=== PATIENT | female | born 1995 | race Caucasian/White ===

== ENCOUNTER → 2016-07-17 | Outpatient (CLI) | payer OTHER ==
[~2016-07-17] MED LIST: ALBU17IN INH; BACT800T5 PO; CIPR500T89 PO; CLAR1TAB2 PO; FLAG500T PO; LEVO500T32 PO; MOTR200T44 PO; MUCI600T34 PO; PERCOCET PO; STUATAB PO; TYLE325T5 PO
[2016-07-17 12:59] LABS: MEAN CORPUSCULAR HEMOGLOBIN 28.3 pg (27.0-33.0); WHITE BLOOD COUNT 5.9 K/mm3 (4.0-10.0)
[2016-07-17 13:06] LABS: ALBUMIN 3.9 GM/DL (3.2-5.2); ALKALINE PHOSPHATASE 117 U/L (45-117); ALT/SGPT 66 U/L (12-78); AMYLASE 27 U/L (25-115); ANION GAP 8 MEQ/L (8-16); AST/SGOT 37 U/L (15-37); BILIRUBIN,DIRECT 0.1 MG/DL (0.0-0.2); BILIRUBIN,TOTAL 0.5 MG/DL (0.2-1.0); BLOOD UREA NITROGEN 14 MG/DL (7-18); CALCIUM LEVEL 9.2 MG/DL (8.5-10.1); CARBON DIOXIDE LEVEL 27 MEQ/L (21-32); CHLORIDE LEVEL 108 MEQ/L (98-107); CREATININE FOR GFR 0.61 MG/DL (0.55-1.02); GLOMERULAR FILTRATION RATE > 60.0 (>60); GLUCOSE, FASTING 79 MG/DL (70-105); POTASSIUM SERUM 4.8 MEQ/L (3.5-5.1); SODIUM LEVEL 143 MEQ/L (136-145); TOTAL PROTEIN 7.8 GM/DL (6.4-8.2)
== END ==
LOC: M LAB 11:37
PROVIDERS: ATTEND Physician Assistant Medical
DX: K85.80 Other acute pancreatitis without necrosis or infection (principal)

== ENCOUNTER 2016-10-28 23:52 | Emergency (ER) | payer OTHER ==
[~2016-10-28] VITALS: Ht 165.1 cm; Wt 140.6 kg
[2016-10-29] MEDS ORDERED: THERTAB3 PO (00:16)
[2016-10-29] MEDS ORDERED: EXCETAB81 PO (00:16)
[2016-10-29] MEDS ORDERED: methylPREDNISolone INJ 125 MG/2 ML VIAL (J2930) IM ONE (04:30)
[2016-10-29] MEDS ORDERED: IPRATROPIUM 0.5MG/ALBUTEROL 2.5MG INH SOL UD 3ML (DUONEB)(J7620) NEB ONE (04:30)
[2016-10-29] MEDS ORDERED: ZITHTAB PO (04:37)
[2016-10-29] MEDS ORDERED: PRED20TA PO (04:37)
[2016-10-29] MEDS ORDERED: ACETAMINOPHEN 325 MG TAB PO ONE (04:45)
[2016-10-29 04:51] VITALS: BP 141/68
--- NOTE | 2016-10-29 07:44 | REP ---
Clinical: Cough . Comparison: 03/18/2013 . Technique: PA and lateral. Findings: The mediastinum and cardiac silhouette are normal. The lung meyer are clear and without acute consolidation, effusion, or pneumothorax. The skeletal structures are intact and normal. Impression: 1. No acute cardiopulmonary process. Signed by Alpesh Hobson MD 10/29/2016 07:36 A
== END 2016-10-29 04:57 | disposition home or self-care (01) ==
LOC: M ED 10-29 01:10
DX: J20.9 Acute bronchitis, unspecified (principal); J45.909 Unspecified asthma, uncomplicated; F17.200 Nicotine dependence, unspecified, uncomplicated; Z88.1 Allergy status to other antibiotic agents

== ENCOUNTER → 2016-11-07 | Outpatient (REF) | payer OTHER ==
[~2016-11-07] MED LIST changes: +EXCETAB81 PO; +PRED20TA PO; +THERTAB3 PO; +ZITHTAB PO
== END ==
LOC: M SFHCPLAZ 12:07
PROVIDERS: ATTEND Family Medicine
DX: R10.84 Generalized abdominal pain (principal); Z87.19 Personal history of other diseases of the digestive system

== ENCOUNTER → 2016-11-08 | Outpatient (CLI) | payer OTHER ==
[2016-11-08 18:37] LABS: ALBUMIN 3.7 GM/DL (3.2-5.2); ALKALINE PHOSPHATASE 99 U/L (45-117); ALT/SGPT 40 U/L (12-78); AMYLASE 27 U/L (25-115); AST/SGOT 16 U/L (15-37); BILIRUBIN,DIRECT < 0.1 MG/DL (0.0-0.2); BILIRUBIN,TOTAL 0.3 MG/DL (0.2-1.0); TOTAL PROTEIN 7.4 GM/DL (6.4-8.2)
== END ==
LOC: M LAB 17:37
PROVIDERS: ATTEND Family Medicine
DX: Z87.19 Personal history of other diseases of the digestive system (principal); R10.84 Generalized abdominal pain

== ENCOUNTER → 2016-11-12 | Outpatient (CLI) | payer OTHER ==
[2016-11-12 14:08] LABS: MEAN CORPUSCULAR HEMOGLOBIN 28.6 pg (27.0-33.0); MEAN CORPUSCULAR HGB CONC 33.6 g/dl (32.0-36.5); MEAN CORPUSCULAR VOLUME 84.9 fl (80.0-96.0); RED CELL DISTRIBUTION WIDTH 13.8 % (11.5-14.5); WHITE BLOOD COUNT 6.7 K/mm3 (4.0-10.0)
== END ==
LOC: M LAB 12:24
PROVIDERS: ATTEND Family Medicine
DX: R10.84 Generalized abdominal pain (principal)

== ENCOUNTER → 2016-11-26 | Outpatient (CLI) | payer OTHER ==
[2016-11-26 18:02] LABS: ALBUMIN 3.7 GM/DL (3.2-5.2); ALBUMIN/GLOBULIN RATIO 1.19 (1.00-1.93); ALKALINE PHOSPHATASE 84 U/L (45-117); ALT/SGPT 51 U/L (12-78); AMYLASE 21 U/L (25-115); ANION GAP 7 MEQ/L (8-16); AST/SGOT 23 U/L (15-37); BILIRUBIN,TOTAL 0.5 MG/DL (0.2-1.0); BLOOD UREA NITROGEN 10 MG/DL (7-18); CALCIUM LEVEL 8.8 MG/DL (8.5-10.1); CARBON DIOXIDE LEVEL 26 MEQ/L (21-32); CHLORIDE LEVEL 112 MEQ/L (98-107); GLOMERULAR FILTRATION RATE > 60.0 (>60); GLUCOSE, FASTING 116 MG/DL (70-105); POTASSIUM SERUM 3.7 MEQ/L (3.5-5.1); SODIUM LEVEL 145 MEQ/L (136-145); TOTAL PROTEIN 6.8 GM/DL (6.4-8.2)
[2016-11-26 18:29] LABS: BASO % 0.9 % (0.0-1.0); EOS # 0.2 K/mm3 (0.0-0.50); EOS % 4.3 % (0.0-3.0); LARGE UNSTAINED CELL # 0.1 K/mm3 (0.0-0.4); LARGE UNSTAINED CELL % 1.5 % (0.0-4.0); LYMPH # 2.2 K/mm3 (1.5-6.5); LYMPH % 42.7 % (24.0-44.0); MEAN CORPUSCULAR HEMOGLOBIN 29.3 pg (27.0-33.0); MEAN CORPUSCULAR HGB CONC 34.6 g/dl (32.0-36.5); MEAN CORPUSCULAR VOLUME 84.8 fl (80.0-96.0); MONO # 0.2 K/mm3 (0.0-0.8); NEUTROPHILS # 2.4 K/mm3 (1.8-7.7); NEUTROPHILS % 46.6 % (36.0-66.0); PLATELET COUNT, AUTOMATED 186 k/mm3 (150-450); RED CELL DISTRIBUTION WIDTH 14.1 % (11.5-14.5); WHITE BLOOD COUNT 5.2 K/mm3 (4.0-10.0)
== END ==
LOC: M SMT 14:24
PROVIDERS: ATTEND Internal Medicine Gastroenterology
DX: R10.84 Generalized abdominal pain (principal); K85.80 Other acute pancreatitis without necrosis or infection

== ENCOUNTER 2017-04-16 12:33 | Emergency (ER) | payer MEDICAID, OTHER, SELFPAY ==
[~2017-04-16] VITALS: Ht 165.1 cm; Wt 144.1 kg
[2017-04-16 12:33] VITALS: BP 147/81
[~2017-04-16 12:33] MED LIST changes: +CIPR-249 PO; -CIPR500T89 PO; +LEVO500T3 PO; -LEVO500T32 PO; -MUCI600T34 PO; +MUCI600T37 PO
[2017-04-16] MEDS ORDERED: TYLE500T78 PO (12:39)
[2017-04-16] MEDS ORDERED: NORCOTAB PO (13:20)
[2017-04-16] MEDS ORDERED: CLEO300C2 PO (13:20)
[2017-04-16] MEDS ORDERED: IBUP-1022 PO (13:20)
== END 2017-04-16 13:43 | disposition home or self-care (01) ==
LOC: M ED 12:33
DX: K02.9 Dental caries, unspecified (principal); K04.7 Periapical abscess without sinus; Z72.0 Tobacco use

== ENCOUNTER 2017-06-30 15:07 | Emergency (ER) | payer OTHER, MEDICAID ==
[2017-06-30 15:30] LABS: KETONE, URINE AUTO RFX NEGATIVE (NEGATIVE); NITRITE, URINE AUTO RFX NEGATIVE (NEGATIVE); RBC, URINE AUTO RFX 3 /HPF (0-3); SPECIFIC GRAVITY UR AUTO RFX 1.026 (1.002-1.035); SQUAM EPITHELIAL CELL UR AURFX 3 /HPF (0-6); WBC, URINE AUTO RFX 1 /HPF (0-3)
[2017-06-30 15:33] LABS: LEUKOCYTE ESTERASE UR AUTO RFX 1+ (NEGATIVE)
[2017-06-30] MEDS: CLINDAMYCIN 150 MG CAP PO (16:30)
[2017-06-30] MEDS: IBUPROFEN 800 MG TAB PO (16:30)
== END 2017-06-30 16:38 | disposition home or self-care (01) ==
LOC: M ED 15:07
DX: K04.7 Periapical abscess without sinus (principal); M54.5 Low back pain; J45.909 Unspecified asthma, uncomplicated; F41.9 Anxiety disorder, unspecified; F17.210 Nicotine dependence, cigarettes, uncomplicated; Z87.448 Personal history of other diseases of urinary system; Z88.0 Allergy status to penicillin
CPT/HCPCS: 81001

== ENCOUNTER 2017-09-07 20:44 | Emergency (ER) | payer OTHER | END 2017-09-07 23:19 | disposition home or self-care (01) | LOC: M ED 20:44 | DX: S00.83XA Contusion of other part of head, initial encounter (principal); W22.8XXA Striking against or struck by other objects, initial encounter; Y92.59 Other trade areas as the place of occurrence of the external cause; Y99.0 Civilian activity done for income or pay; Z87.820 Personal history of traumatic brain injury | CPT/HCPCS: 99282 ==

== ENCOUNTER 2019-06-28 22:39 | Emergency (ER) | payer OTHER ==
[~2019-06-28] VITALS: Ht 165.1 cm; Wt 160.0 kg
[~2019-06-28 22:39] MED LIST changes: +CLEO300C2 PO; +HYDR-3715 PO; +IBUP-1022 PO; +IBUP80TA PO; +TYLE500T78 PO
[2019-06-28 22:40] VITALS: BP 177/73
[2019-06-28 23:29] LABS: INFLUENZA A AMPLIFICATION POSITIVE (NEGATIVE); INFLUENZA B AMPLIFICATION NEGATIVE (NEGATIVE)
[2019-06-28] MEDS ORDERED: KETOROLAC 60 MG/2 ML VIAL (J1885) IM ONE (23:45)
[2019-06-28] MEDS ORDERED: OSELTAMIVIR PHOSPHATE 75 MG CAP (TAMIFLU) PO ONE (23:45)
[2019-06-29] MEDS ORDERED: OSEL75CA PO (00:14)
--- NOTE | 2019-06-29 01:43 | REP ---
Clinical: Cough and flu-type symptoms . Comparison: 10/29/2016 . Technique: PA and lateral. Findings: The mediastinum and cardiac silhouette are normal. The lung meyer are clear and without acute consolidation, effusion, or pneumothorax. The skeletal structures are intact and normal. Impression: 1. No acute cardiopulmonary process. Electronically Signed by Alpesh Hobson MD 06/29/2019 01:34 A
== END 2019-06-29 00:22 | disposition home or self-care (01) ==
LOC: M ED 22:39
DX: J09.X2 Influenza due to identified novel influenza A virus with other respiratory manifestations (principal); J45.909 Unspecified asthma, uncomplicated; F41.9 Anxiety disorder, unspecified; F17.200 Nicotine dependence, unspecified, uncomplicated; Z88.0 Allergy status to penicillin
CPT/HCPCS: 71046; 87502; 96372; 99282; J1885

== ENCOUNTER 2019-07-27 18:04 | Emergency (ER) | payer OTHER ==
[~2019-07-27] VITALS: Ht 165.1 cm; Wt 152.4 kg
[~2019-07-27 18:04] MED LIST changes: +OSEL75CA PO
[2019-07-27 19:14] VITALS: BP 128/76
[2019-07-27] MEDS ORDERED: OSEL75CA PO (19:15)
== END 2019-07-27 19:26 | disposition home or self-care (01) ==
LOC: M ED 18:04
DX: J09.X9 Influenza due to identified novel influenza A virus with other manifestations (principal); F17.200 Nicotine dependence, unspecified, uncomplicated; Z20.828 Contact with and (suspected) exposure to other viral communicable diseases; Z88.1 Allergy status to other antibiotic agents

== ENCOUNTER 2019-12-19 00:34 | Emergency (ER) | payer OTHER ==
[~2019-12-19] VITALS: Ht 165.1 cm; Wt 151.8 kg
[2019-12-19] MEDS ORDERED: ALBUTEROL 90 MCG/ACT 8GM HFA INHALER INH ONE (01:15)
[2019-12-19 01:29] LABS: BASO # 0.1 10^3/uL (0.0-0.2); BASO % 1.3 % (0.0-1.0); EOS # 0.2 10^3/uL (0.0-0.5); EOS % 3.2 % (0.0-3.0); HEMATOCRIT 40.5 % (36.0-47.0); HEMOGLOBIN 13.2 g/dl (12.0-15.5); LYMPH # 2.5 10^3/uL (1.5-5.0); LYMPH % 33.7 % (24.0-44.0); MEAN CORPUSCULAR HEMOGLOBIN 28.6 pg (27.0-33.0); MEAN CORPUSCULAR HGB CONC 32.6 g/dl (32.0-36.5); MEAN CORPUSCULAR VOLUME 87.9 fl (80.0-96.0); MONO # 0.4 10^3/uL (0.0-0.8); MONO % 4.9 % (0.0-5.0); NEUTROPHILS # 4.2 10^3/uL (1.5-8.5); NEUTROPHILS % 56.6 % (36.0-66.0); PLATELET COUNT, AUTOMATED 201 10^3/uL (150-450); RED BLOOD COUNT 4.61 10^6/uL (4.00-5.40); WHITE BLOOD COUNT 7.4 10^3/uL (4.0-10.0)
[2019-12-19 01:41] VITALS: O2SAT 98
[2019-12-19 01:51] LABS: INR 1.03; PARTIAL THROMBOPLASTIN TIME 31.5 SECONDS (25.0-38.4); PROTHROMBIN TIME 13.2 SECONDS (11.8-14.0)
[2019-12-19 02:09] LABS: CK-MB VALUE MASS < 1.0 NG/ML (<3.6); CPK CREATINE PHOSPHOKINASE 217 U/L (26-192); FREE T4 0.85 NG/DL (0.76-1.46); MB/CK RELATIVE INDEX 0.46 (< OR =4); TROPONIN I < 0.02 NG/ML (< 0.10)
[2019-12-19] MEDS ORDERED: ALPRAZolam 0.25 MG TAB PO ONE (02:30)
[2019-12-19 02:37] VITALS: BP 136/79
--- NOTE | 2019-12-19 09:47 | REP ---
PA LATERAL CHEST: 12/19/2019. Comparison: 06/28/1927, 10/29/2016. Clinical history: Chest pain. Findings: Two-view show the lungs adequately inflated. There is no infiltrate, effusion, atelectasis or mass. The heart, mediastinal and hilar contours are normal. Aorta and airway were unremarkable. No pneumothorax. Bones were intact. Impression: 1. No acute cardiopulmonary disease. Stable chest. Electronically Signed by Jose Manuel Zavala MD 12/19/2019 09:39 A
--- NOTE | 2019-12-19 16:05 | ECGEPIP ---
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
== END 2019-12-19 02:38 | disposition home or self-care (01) ==
LOC: M ED 00:34
DX: E03.9 Hypothyroidism, unspecified (principal); F41.9 Anxiety disorder, unspecified; J45.909 Unspecified asthma, uncomplicated; Z88.1 Allergy status to other antibiotic agents

== ENCOUNTER → 2019-12-30 | Outpatient (CLI) | payer OTHER ==
[2019-12-30 08:29] LABS: HEMATOCRIT 39.6 % (36.0-47.0); HEMOGLOBIN 12.9 g/dl (12.0-15.5); MEAN CORPUSCULAR HEMOGLOBIN 28.7 pg (27.0-33.0); MEAN CORPUSCULAR HGB CONC 32.6 g/dl (32.0-36.5); PLATELET COUNT, AUTOMATED 171 10^3/uL (150-450); WHITE BLOOD COUNT 8.1 10^3/uL (4.0-10.0)
--- NOTE | 2019-12-30 08:29 | REP ---
Clinical: Chest pain . Comparison: 12/19/2019 . Technique: PA and lateral. Findings: The mediastinum and cardiac silhouette are normal. The lung meyer are clear and without acute consolidation, effusion, or pneumothorax. The skeletal structures are intact and normal. Impression: 1. No acute cardiopulmonary process. Electronically Signed by Alpesh Hobson MD 12/30/2019 08:21 A
[2019-12-30 09:06] LABS: ALBUMIN 3.7 GM/DL (3.2-5.2); ALT/SGPT 43 U/L (12-78); BILIRUBIN,TOTAL 0.3 MG/DL (0.2-1.0); BLOOD UREA NITROGEN 14 MG/DL (7-18); CARBON DIOXIDE LEVEL 29 MEQ/L (21-32); CHLORIDE LEVEL 108 MEQ/L (98-107); CHOLESTEROL LEVEL 203 MG/DL (<200); CHOLESTEROL RISK RATIO 5.486 (<5); CREATININE FOR GFR 0.74 MG/DL (0.55-1.30); GLOMERULAR FILTRATION RATE > 60.0 (>60); GLUCOSE, FASTING 83 MG/DL (70-100); HDL CHOLESTEROL 37 MG/DL (>40); LDL CHOLESTEROL 136 MG/DL (<100); NON-HDL-C 166 MG/DL; POTASSIUM SERUM 4.2 MEQ/L (3.5-5.1); SODIUM LEVEL 143 MEQ/L (136-145); THYROXINE (T4) 7.3 UG/DL (4.5-12.0); TOTAL PROTEIN 7.3 GM/DL (6.4-8.2); TRIGLYCERIDES LEVEL 149 MG/DL (<150)
[2019-12-30 09:19] LABS: HEMOGLOBIN A1c 5.1 %
[2019-12-30 10:43] LABS: TOTAL 25(OH) VITAMIN D 23.8 NG/ML (30.0-100.0)
[2019-12-30 10:44] LABS: TOTAL T3 133.6 NG/DL (60.0-181.0)
== END ==
LOC: M LAB 07:15
PROVIDERS: ATTEND Family Medicine
DX: D64.9 Anemia, unspecified (principal); R53.83 Other fatigue; E03.9 Hypothyroidism, unspecified

== ENCOUNTER 2020-01-12 17:20 | Emergency (ER) | payer OTHER ==
[2020-02-09 16:07] LABS: BASO # 0.1 10^3/uL (0.0-0.2); BASO % 0.8 % (0.0-1.0); EOS # 0.1 10^3/uL (0.0-0.5); EOS % 1.8 % (0.0-3.0); HEMATOCRIT 42.6 % (36.0-47.0); HEMOGLOBIN 14.2 g/dl (12.0-15.5); LYMPH # 2.6 10^3/uL (1.5-5.0); LYMPH % 34.2 % (24.0-44.0); MEAN CORPUSCULAR HEMOGLOBIN 28.7 pg (27.0-33.0); MEAN CORPUSCULAR HGB CONC 33.3 g/dl (32.0-36.5); MEAN CORPUSCULAR VOLUME 86.1 fl (80.0-96.0); MONO # 0.4 10^3/uL (0.0-0.8); NEUTROPHILS # 4.4 10^3/uL (1.5-8.5); NEUTROPHILS % 57.9 % (36.0-66.0); PLATELET COUNT, AUTOMATED 201 10^3/uL (150-450); RED BLOOD COUNT 4.95 10^6/uL (4.00-5.40); WHITE BLOOD COUNT 7.7 10^3/uL (4.0-10.0)
--- NOTE | 2020-02-23 11:35 | ECGEPIP ---
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
[2020-02-25 12:02] LABS: ALBUMIN 4.5 GM/DL (3.2-5.2); ALT/SGPT 50 U/L (12-78); BILIRUBIN,DIRECT 0.1 MG/DL (0.0-0.2); BILIRUBIN,TOTAL 0.4 MG/DL (0.2-1.0); BLOOD UREA NITROGEN 11 MG/DL (7-18); CALCIUM LEVEL 9.5 MG/DL (8.5-10.1); CARBON DIOXIDE LEVEL 25 MEQ/L (21-32); CHLORIDE LEVEL 105 MEQ/L (98-107); CK-MB VALUE MASS < 1.0 NG/ML (<3.6); CPK CREATINE PHOSPHOKINASE 86 U/L (26-192); FREE T4 1.17 NG/DL (0.76-1.46); GLOMERULAR FILTRATION RATE > 60.0 (>60); GLUCOSE, FASTING 80 MG/DL (70-100); LIPASE 77 U/L (73-393); MB/CK RELATIVE INDEX 1.16 (< OR =4); POTASSIUM SERUM 3.9 MEQ/L (3.5-5.1); SODIUM LEVEL 137 MEQ/L (136-145); TOTAL PROTEIN 8.2 GM/DL (6.4-8.2); TROPONIN I < 0.02 NG/ML (< 0.10)
--- NOTE | 2020-02-29 09:56 | REP ---
CHEST X-RAY, TWO VIEWS HISTORY: Unknown. Report is delayed due to a malware attack on this facility. FINDINGS: The lungs are well-inflated and clear. The pleural angles are sharp. Heart size is normal. Pulmonary vasculature is not increased. No bony abnormality is appreciated. No infiltrate seen. IMPRESSION: Negative chest x-ray. MTDD
== END 2020-01-12 20:36 | disposition home or self-care (01) ==
LOC: M ED 17:20
DX: F41.9 Anxiety disorder, unspecified (principal); J45.909 Unspecified asthma, uncomplicated; E78.5 Hyperlipidemia, unspecified; E03.9 Hypothyroidism, unspecified; Z79.891 Long term (current) use of opiate analgesic; Z79.899 Other long term (current) drug therapy; Z88.1 Allergy status to other antibiotic agents

== ENCOUNTER 2021-03-03 11:14 | Emergency (ER) | payer OTHER ==
[~2021-03-03] VITALS: Ht 167.6 cm; Wt 192.5 kg
[2021-03-03] MEDS ORDERED: LEVO150T7 (11:26)
[2021-03-03] MEDS ORDERED: ERGO500029 (11:26)
[2021-03-03 13:14] VITALS: BP 132/88
[2021-03-03] MEDS ORDERED: ERGO500029 PO (13:49)
[2021-03-03] MEDS ORDERED: LEVO150T7 PO (13:49)
[2021-03-03 14:53] LABS: BLOOD UREA NITROGEN 14 MG/DL (7-18); CARBON DIOXIDE LEVEL 28 MEQ/L (21-32); CHLORIDE LEVEL 104 MEQ/L (98-107); CREATININE FOR GFR 0.78 MG/DL (0.55-1.30); FREE T3 3.1 PG/ML (2.2-4.0); FREE T4 1.13 NG/DL (0.76-1.46); GLOMERULAR FILTRATION RATE > 60.0 (>60); GLUCOSE, FASTING 142 MG/DL (70-100); POTASSIUM SERUM 3.9 MEQ/L (3.5-5.1); SODIUM LEVEL 140 MEQ/L (136-145)
== END 2021-03-03 14:07 | disposition home or self-care (01) ==
LOC: M ED 11:14
DX: Z76.0 Encounter for issue of repeat prescription (principal); E03.9 Hypothyroidism, unspecified; E55.9 Vitamin D deficiency, unspecified; J45.909 Unspecified asthma, uncomplicated; F33.9 Major depressive disorder, recurrent, unspecified; F41.9 Anxiety disorder, unspecified; E66.9 Obesity, unspecified; Z79.899 Other long term (current) drug therapy; Z79.890 Hormone replacement therapy; Z88.0 Allergy status to penicillin; Z87.891 Personal history of nicotine dependence

== ENCOUNTER 2021-04-04 15:30 | Emergency (ER) | payer OTHER ==
[~2021-04-04] VITALS: Ht 165.1 cm; Wt 193.2 kg
[~2021-04-04 15:30] MED LIST changes: +ERGO500029; +ERGO500029 PO; +LEVO150T7; +LEVO150T7 PO
--- OUTSIDE RECORDS SUMMARY | 2021-04-04 15:40 | CCD ---
Author Author [facility] Organization [facility] Address Unknown Phone Unavailable Support Name Relationship Address Phone AJIT THOMAS Next Of Kin [address] [facility] [place] [id number] DOMINOS Next Of Kin [address] [place] [id number] JESSICA FRANZ Next Of Kin [address] [place] [address] RITE AIDE Next Of Kin [address] [place] [address] R[place] Next Of Kin [address] [place] [address] TERESE MONACO Next Of Kin [address] [address] UE Next Of Kin Unknown Unavailable AQUILINO CALLOWAY [place] [address] Robles Laughlin Unknown Unavailable Re-disclosure Warning The records that you are about to access may contain information from federally-assisted alcohol or drug abuse programs. If such information is present, then the following federally mandated warning applies: This information has been disclosed to you from records protected by federal confidentiality rules (42 CFR part 2). The federal rules prohibit you from making any further disclosure of this information unless further disclosure is expressly permitted by the written consent of the person to whom it pertains or as otherwise permitted by 42 CFR part 2. A general authorization for the release of medical or other information is NOT sufficient for this purpose. The Federal rules restrict any use of the information to criminally investigate or prosecute any alcohol or drug abuse patient.The records that you are about to access may contain highly sensitive health information, the redisclosure of which is protected by Article 27-F of the [facility] Public Health law. If you continue you may have access to information: Regarding HIV / AIDS; Provided by facilities licensed or operated by the [facility] Office of Mental Health; or Provided by the [facility] Office for People With Developmental Disabilities. If such information is present, then the following [facility] mandated warning applies: This information has been disclosed to you from confidential records which are protected by state law. State law prohibits you from making any further disclosure of this information without the specific written consent of the person to whom it pertains, or as otherwise permitted by law. Any unauthorized further disclosure in violation of state law may result in a fine or half-way sentence or both. A general authorization for the release of medical or other information is NOT sufficient authorization for further disc losure. Family History Family Member Name Family Member Gender Family Member Status Date o f Status Description Data Source(s) Unknown Male Problem MEDENT ([facility]) Unknown Male Problem MEDENT ([facility], ) Medications Medication Brand Name Start Date Product Form Dose Route Admi nistrative Instructions Pharmacy Instructions Status Indications Reaction Description Data Source(s) 150 mcg 03/03/2021 12:00:00 AM EDT tablet 30 TAKE ONE TABLET BY MOUTH EVERY DAY TAKE ONE TABLET BY MOUTH EVERY DAY SOLD: 03/03/2021 [facility] 1,250 mcg (50,000 unit) 03/03/2021 12:00:00 AM EDT capsule 30 TAKE ONE CAPSULE BY MOUTH EVERY DAY TAKE ONE CAPSULE BY MOUTH EVERY DAY SOLD: 03/03/2021 [facility] 150 mcg 01/02/2021 12:00:00 AM EDT tablet 30 TAKE ONE TABLET BY MOUTH EVERY DAY TAKE ONE TABLET BY MOUTH EVERY DAY SOLD: 01/02/2021 [facility] Insurance Providers Payer name Policy type / Coverage type Policy ID Covered constitution party ID Covered constitution party's relationship to garza Policy Garza Plan Information [facility] Medigap Part B [id number] Self [facility] Medigap Part B [id number] Self [id number] FREDDY [id number] 600 FREDDY [id number] SP [id number] [facility] MEDICAID [id number] Yolanda [id number] OTHER WORKERS COMPENSATION [id number] SP [id number] [facility] [id number] SP [id number] MEDICAID [id number] SP [id number] SELF PAY ONLY [id number] SP [id number] FREDDY [id number] SP [id number] 600 [place] [facility] [place] Medicaid [id number] Self [id number] [facility] [place] O [id number] S [id number] [facility] [place] Medicaid .[id number] Self FREDDY [id number] SP [id number] [facility] [facility] [place] O [id number] S [id number] [facility] P UNAVAILABLE [id number] C UNAVAILABLE MEDICAID P [id number] S [id number] MEDICAID [id number] SP [id number] MEDICAID P [id number] S [id number] [facility](MCAID) P [id number] S [id number] [facility](MCAID) P [id number] S [id number] [facility] [id number] SP [id number] SELF PAY UNAVAILABLE SP UNAVAILA BLE [id number] [facility] [id number] SP [id number] [facility](MCAID) O [id number] S [id number] [facility] INSURANCE FUND [id number] SP [id number] [employer] [id number] Self [id number] [employer] [id number] Self [id number] Problems, Conditions, and Diagnoses No Information Surgeries/Procedures No Information Results ID Date Data Source [id number] 04/13/2020 09:38:40 PM EST Laboratory Al [facility] of [facility] Name Value Range Interpretation Code Description Data Padmini rce(s) Supporting Document(s) TSH,ULTRASENSITIVE @ 1.470 mIU/L (0.360-4.170) Laboratory [facility] ID Date Data Source [id number] 04/13/2020 10:22:50 PM EST Laboratory Al liance of [facility] Name Value Range Interpretation Code Description Data Padmini rce(s) Supporting Document(s) HEMOGLOBIN A1C @ 5.3 % (4.0-6.0) Laboratory Al liance of [facility] Performed using Siemens [place] immunoassa y.Care must be taken when interpreting [id number] in patients with a hemoglobin variantor decreased erythrocyte lifespan. Values 5.7 - 6.4% suggest prediabetes.Values >=6.5% are diagnostic for diabetes.REFERENCE: DIABETES CARE 2018: 41(S13-S27). EST AVERAGE GLUCOSE 105 mg/dL Laboratory [facility] Procedure Social History No Information
[2021-04-04 16:15] VITALS: BP 152/96
[2021-04-04] MEDS ORDERED: LEVO150T7 PO (16:15)
--- OUTSIDE RECORDS SUMMARY | 2021-04-04 16:26 | CCD ---
Author Author [facility] Organization [facility] Address Unknown Phone Unavailable Support Name Relationship Address Phone AJIT THOMAS Next Of Kin [address] [facility] [place] [id number] DOMINOS Next Of Kin [address] [place] [phone] JESSICA FRANZ Next Of Kin [address] [place] [address] RITE AIDE Next Of Kin [address] [place] [address] R[place] Next Of Kin [address] [place] [address] TEREES MONACO Next Of Kin [address] [address] [place] Next Of Kin Unknown Unavailable AQUILINO [place] [address] Robles Laughlin Unknown Unavailable Re-disclosure Warning The [...] is protected by Article 27-F of the [facility] Public Health law. If you continue you may have access to information: Regarding HIV / AIDS; Provided by facilities licensed or operated by the [facility] Office of Mental Health; or Provided by the [facility] Office for People With Developmental Disabilities. If such information is present, then the following [facility] mandated warning applies: This information [...] law may result in a fine or residential sentence or both. A general authorization for the release of medical or other information is NOT sufficient authorization for further disc losure. Family History Family Member Name Family Member Gender Family Member Status Date o f Status Description Data Source(s) Unknown Male Problem MEDENT ([facility]) Unknown Male Problem MEDENT ([facility], ) Medications Medication Brand Name Start [...] type / Coverage type Policy ID Covered green party ID Covered green party's relationship to garza Policy Garza Plan Information [facility] Medigap Part B [id number] Self [facility] Medigap Part B [id number] Self [id number] FREDDY [id number] FREDDY [id number] SP [id number] 600 [facility] MEDICAID [id number] Yolanda [id number] 41 OTHER WORKERS COMPENSATION [id number] SP [id number] [facility] [id number] SP [id number] MEDICAID [id number] SP [id number] SELF PAY ONLY [id number] SP [id number] FREDDY [id number] SP [id number] 600 [facility] [place] Medicaid [id number] Self [id number] [facility] [facility] [place] O [id number] S [id number] [facility] [place] Medicaid .[id number] Self FREDDY [id number] SP [id number] [facility] [facility] [place] O [id number] S [id number] [facility] P UNAVAILABLE [id number] C UNAVAILABLE MEDICAID P [id number] S [id number] MEDICAID [id number] SP [id number] MEDICAID P [id number] S [id number] [facility](MCAID) P [id number] S [id number] [facility](MCAID) P [id number] S [id number] [facility] [id number] SP [id number] SELF PAY UNAVAILABLE SP UNAVAILA BLE [id number] [facility] [id number] SP [id number] [facility](MCAID) O [id number] S [id number] [facility] INSURANCE FUND [id number] SP [id number] [employer] [id number] Self [id number] [employer] [id number] Self [id number] Problems, Conditions, and Diagnoses No Information Surgeries/Procedures No Information Results ID Date Data Source [id number] 04/13/2020 09:38:40 PM EST Laboratory [facility] of [facility] [place] [place] Name Value Range Interpretation Code Description Data Padmini rce(s) Supporting Document(s) TSH,ULTRASENSITIVE @ 1.470 mIU/L (0.360-4.170) Laboratory [facility] ID Date Data Source [id number] 04/13/2020 10:22:50 PM EST Laboratory Al liance of [facility] Name Value Range Interpretation Code Description Data Padmini rce(s) Supporting Document(s) HEMOGLOBIN A1C @ 5.3 % (4.0-6.0) Laboratory [facility] of [facility] Performed using Siemens [place] immunoassa y.Care must be taken when interpreting [id number] in patients with a hemoglobin variantor decreased erythrocyte lifespan. Values 5.7 - 6.4% suggest prediabetes.Values >=6.5% are diagnostic for diabetes.REFERENCE: DIABETES CARE 2018: 41(S13-S27). EST AVERAGE GLUCOSE 105 mg/dL Laboratory [facility] Procedure Social History No Information
== END 2021-04-04 16:41 | disposition home or self-care (01) ==
LOC: M ED 15:30
DX: Z76.0 Encounter for issue of repeat prescription (principal); E03.9 Hypothyroidism, unspecified; J45.909 Unspecified asthma, uncomplicated; F33.9 Major depressive disorder, recurrent, unspecified; Z79.890 Hormone replacement therapy; Z88.0 Allergy status to penicillin

== ENCOUNTER → 2022-07-02 | Outpatient (CLI) | payer OTHER ==
[~2022-07-02] MED LIST changes: +LEVO1TAB39 PO; -LEVO500T3 PO
== END ==
LOC: M RAD 11:44
PROVIDERS: ATTEND Pediatrics
DX: E03.9 Hypothyroidism, unspecified (principal); Z79.890 Hormone replacement therapy

== ENCOUNTER → 2022-10-23 | Outpatient (REF) | payer OTHER | LOC: M SFHCDERM 13:29 | PROVIDERS: ATTEND Physician Assistant | DX: L91.8 Other hypertrophic disorders of the skin (principal) ==

== ENCOUNTER → 2022-11-07 | Outpatient (REF) | payer OTHER ==
[2022-11-07 17:15] LABS: ALBUMIN 4.1 G/DL (3.2-5.2); ALKALINE PHOSPHATASE 94 U/L (46-116); ALT/SGPT 31 U/L (7.0-40); AST/SGOT 19 U/L (<34); BILIRUBIN,TOTAL 0.6 MG/DL (0.3-1.2); BLOOD UREA NITROGEN 12 MG/DL (9-23); CALCIUM LEVEL 9.5 MG/DL (8.5-10.1); CARBON DIOXIDE LEVEL 24 MMOL/L (20-31); CHLORIDE LEVEL 105 MMOL/L (98-107); CREATININE FOR GFR 0.69 MG/DL (0.55-1.30); GLOMERULAR FILTRATION RATE > 60.0 (>60); GLUCOSE, FASTING 103 MG/DL (60-100); POTASSIUM SERUM 3.9 MMOL/L (3.5-5.1); SODIUM LEVEL 138 MMOL/L (136-145); TOTAL PROTEIN 7.4 G/DL (5.7-8.2)
[2022-11-07 17:17] LABS: THYROID STIMULATING HORMONE 0.609 uIU/ML (0.55-4.78)
== END ==
LOC: M LAB REF 16:21
PROVIDERS: ATTEND Pediatrics
DX: E11.9 Type 2 diabetes mellitus without complications (principal); E03.9 Hypothyroidism, unspecified

== ENCOUNTER → 2023-01-15 | Outpatient (CLI) | payer OTHER ==
[2023-01-15 15:56] LABS: HEMATOCRIT 36.5 % (36.0-47.0); HEMOGLOBIN 12.4 g/dl (12.0-15.5); MEAN CORPUSCULAR HEMOGLOBIN 29.5 pg (27.0-33.0); MEAN CORPUSCULAR VOLUME 86.9 fl (80.0-96.0); PLATELET COUNT, AUTOMATED 191 10^3/uL (150-450); WHITE BLOOD COUNT 10.9 10^3/uL (4.0-10.0)
[2023-01-15 16:00] LABS: HEMOGLOBIN A1c 4.7 % (4.0-6.0)
[2023-01-15 16:17] LABS: URIC ACID 5.3 MG/DL (3.1-7.8)
[2023-01-15 16:19] LABS: LDH LACTATE DEHYDROGENASE 158 U/L (120-246); TOTAL PROTEIN,RANDOM URINE 28.8 MG/DL (0.0-14.0)
[2023-01-15 16:20] LABS: ALT/SGPT 24 U/L (7.0-40); AST/SGOT 8 U/L (<34); BILIRUBIN,TOTAL 0.4 MG/DL (0.3-1.2); CREATININE FOR GFR 0.53 MG/DL (0.55-1.30); GLOMERULAR FILTRATION RATE > 60.0 (>60)
[2023-01-15 16:24] LABS: CREATININE,RANDOM URINE 225.2 MG/DL
[2023-01-15 16:53] LABS: HIV 1&2 SCREEN NEGATIVE (NEGATIVE)
[2023-01-15 17:00] LABS: HEPATITIS C VIRUS ABY INDEX 0.17 INDEX (<0.8)
[2023-01-15 17:32] LABS: GC DNA AMPLIFICATION NEGATIVE (NEGATIVE)
== END ==
LOC: M PLALAB 12:38
PROVIDERS: ATTEND Obstetrics & Gynecology
DX: O24.311 Unspecified pre-existing diabetes mellitus in pregnancy, first trimester (principal); Z3A.00 Weeks of gestation of pregnancy not specified

== ENCOUNTER → 2023-01-31 | Outpatient (REF) | payer OTHER | LOC: M PLALAB 15:51 | PROVIDERS: ATTEND Advanced Practice Midwife | DX: O16.2 Unspecified maternal hypertension, second trimester (principal) ==

== ENCOUNTER → 2023-02-18 | Outpatient (CLI) | payer OTHER | LOC: M WHC 10:03 | PROVIDERS: ATTEND Advanced Practice Midwife | DX: O16.2 Unspecified maternal hypertension, second trimester (principal); Z3A.18 18 weeks gestation of pregnancy ==

== ENCOUNTER → 2023-04-10 | Outpatient (CLI) | payer OTHER | LOC: M WHC 10:26 | PROVIDERS: ATTEND Advanced Practice Midwife | DX: O10.012 Pre-existing essential hypertension complicating pregnancy, second trimester (principal); Z3A.26 26 weeks gestation of pregnancy ==

== ENCOUNTER → 2023-04-16 | Outpatient (CLI) | payer OTHER ==
[2023-04-16 15:06] LABS: HEMATOCRIT 34.7 % (36.0-47.0); HEMOGLOBIN 11.5 g/dl (12.0-15.5); MEAN CORPUSCULAR HEMOGLOBIN 30.2 pg (27.0-33.0); MEAN CORPUSCULAR HGB CONC 33.1 g/dl (32.0-36.5); MEAN CORPUSCULAR VOLUME 91.1 fl (80.0-96.0); PLATELET COUNT, AUTOMATED 151 10^3/uL (150-450); RED BLOOD COUNT 3.81 10^6/uL (4.00-5.40); WHITE BLOOD COUNT 9.1 10^3/uL (4.0-10.0)
[2023-04-16 15:44] LABS: HEMOGLOBIN A1c 4.7 % (4.0-6.0)
[2023-04-16 15:48] LABS: FREE T4 1.12 NG/DL (0.89-1.76)
[2023-04-16 15:52] LABS: THYROID STIMULATING HORMONE 0.963 uIU/ML (0.55-4.78)
[2023-04-16 17:06] LABS: CHLAMYDIA DNA AMPLIFICATION NEGATIVE (NEGATIVE); GC DNA AMPLIFICATION NEGATIVE (NEGATIVE)
== END ==
LOC: M PLALAB 09:01
PROVIDERS: ATTEND Advanced Practice Midwife
DX: O10.012 Pre-existing essential hypertension complicating pregnancy, second trimester (principal); Z3A.00 Weeks of gestation of pregnancy not specified

== ENCOUNTER → 2023-04-16 | Outpatient (CLI) | payer OTHER ==
[2023-04-16 15:07] LABS: HEMATOCRIT 34.5 % (36.0-47.0); HEMOGLOBIN 11.4 g/dl (12.0-15.5); MEAN CORPUSCULAR HEMOGLOBIN 30.2 pg (27.0-33.0); MEAN CORPUSCULAR VOLUME 91.5 fl (80.0-96.0); PLATELET COUNT, AUTOMATED 160 10^3/uL (150-450); RED BLOOD COUNT 3.77 10^6/uL (4.00-5.40); WHITE BLOOD COUNT 8.6 10^3/uL (4.0-10.0)
[2023-04-16 15:12] LABS: URIC ACID 4.7 MG/DL (3.1-7.8)
[2023-04-16 15:15] LABS: ALT/SGPT 17 U/L (7.0-40); AST/SGOT 10 U/L (<34); BILIRUBIN,TOTAL 0.4 MG/DL (0.3-1.2); CREATININE FOR GFR 0.53 MG/DL (0.55-1.30); GLOMERULAR FILTRATION RATE > 60.0 (>60); LDH LACTATE DEHYDROGENASE 137 U/L (120-246)
[2023-04-16 15:38] LABS: TOTAL PROTEIN,RANDOM URINE 33.4 MG/DL (0.0-14.0)
[2023-04-16 15:42] LABS: CREATININE,RANDOM URINE 186.1 MG/DL
== END ==
LOC: M PLALAB 09:03
PROVIDERS: ATTEND Advanced Practice Midwife
DX: O24.112 Pre-existing type 2 diabetes mellitus, in pregnancy, second trimester (principal); Z3A.00 Weeks of gestation of pregnancy not specified

== ENCOUNTER → 2023-06-18 | Outpatient (REF) | payer OTHER | LOC: M SFHCWAGY 15:23 | PROVIDERS: ATTEND Obstetrics & Gynecology | DX: O10.913 Unspecified pre-existing hypertension complicating pregnancy, third trimester (principal) ==

== ENCOUNTER 2023-06-24 21:37 | Inpatient (IN) | payer OTHER ==
[~2023-06-24] VITALS: Ht 165.1 cm; Wt 164.8 kg
[2023-06-24] MEDS ORDERED: LACTATED RINGER'S 1000 ML IV STA (21:43)
[2023-06-24] MEDS ORDERED: OXYTOCIN DRIP 30 UNITS in IV 1 EA IV PRN (21:45)
[2023-06-24] MEDS ORDERED: TRANEXAMIC ACID INJection 1,000 MG in NS 100 ML IV PRN (21:45)
[2023-06-24] MEDS ORDERED: CARBOPROST TROMETHAMINE 250 MCG/ML AMP IM PRN (21:45)
[2023-06-24] MEDS ORDERED: OXYTOCIN INJ 10UNITS/ML 1ML VIAL IM PRN (21:45)
[2023-06-24] MEDS ORDERED: LIDOCAINE 1% MDV 20ML VIAL INFIL PRN (21:45)
[2023-06-24] MEDS ORDERED: PRENTAB9 PO (22:11)
[2023-06-24] MEDS ORDERED: METF-839 PO (22:11)
[2023-06-24] MEDS ORDERED: LABE200T5 PO (22:12)
[2023-06-24] MEDS: LABETALOL 200 MG TAB PO SCH (22:30)
[2023-06-24] MEDS ORDERED: miSOPROStol 50MCG 1/2 TABLET PO SCH (22:55)
[2023-06-25] VITALS (41 sets, daily range): BP systolic 84–197; BP diastolic 53–102; O2SAT 61–100
[2023-06-25] MEDS: miSOPROStol 50MCG 1/2 TABLET PO SCH ×4 (00:23→09:41)
[2023-06-25 00:24] LABS: HEMATOCRIT 35.4 % (36.0-47.0); MEAN CORPUSCULAR HEMOGLOBIN 30.2 pg (27.0-33.0); MEAN CORPUSCULAR HGB CONC 33.9 g/dl (32.0-36.5); MEAN CORPUSCULAR VOLUME 88.9 fl (80.0-96.0); PLATELET COUNT, AUTOMATED 161 10^3/uL (150-450); RED BLOOD COUNT 3.98 10^6/uL (4.00-5.40); WHITE BLOOD COUNT 9.4 10^3/uL (4.0-10.0)
[2023-06-25 00:42] LABS: LDH LACTATE DEHYDROGENASE 180 U/L (120-246)
[2023-06-25 00:43] LABS: ALT/SGPT 14 U/L (7.0-40); AST/SGOT 13 U/L (<34); BILIRUBIN,TOTAL 0.3 MG/DL (0.3-1.2); CREATININE FOR GFR 0.59 MG/DL (0.55-1.30); GLOMERULAR FILTRATION RATE > 60.0 (>60)
[2023-06-25 01:30] LABS: TOTAL PROTEIN,RANDOM URINE 12.5 MG/DL (0.0-14.0)
[2023-06-25 01:35] LABS: CREATININE,RANDOM URINE 156.4 MG/DL
[2023-06-25] MEDS ORDERED: LEVOTHYROXINE 150MCG TABLET (0.15MG) PO SCH (06:00)
[2023-06-25] MEDS: metFORMIN (GLUCOPHAGE) 500MG TAB PO SCH ×3 (08:07→19:00)
[2023-06-25] MEDS: LABETALOL 200 MG TAB PO SCH ×3 (08:09→21:00)
[2023-06-25] MEDS ORDERED: OXYTOCIN DRIP 30 UNITS in IV 1 EA IV SCH ×2 (14:10→23:10)
[2023-06-25] MEDS: LR 1,000 ML IV SCH ×2 (14:32→17:53)
[2023-06-25] MEDS ORDERED: diphenhydrAMINE 50MG/ML VIAL IV PRN ×2 (19:50→22:30)
[2023-06-25] MEDS ORDERED: NALOXONE INJ 0.4MG/1ML VIAL IV PRN ×3 (19:50→22:30)
[2023-06-25] MEDS ORDERED: LR 500 ML IV PRN (19:50)
[2023-06-25] MEDS ORDERED: ePHEDrine SULFATE 25 MG/5 ML(5MG/ML) SYRINGE IVP PRN (19:50)
[2023-06-25] MEDS ORDERED: FENTANYL/ROPIVACAINE/NACL BAG 100 ML EPIDURAL SCH (19:50)
[2023-06-25] MEDS ORDERED: EPIDURAL/PCA KEYS XX PRN (19:50)
[2023-06-25] MEDS ORDERED: ONDANSETRON 4MG 2ML VIAL IV PRN ×3 (19:50→23:10)
[2023-06-25] MEDS ORDERED: LIDOCAINE 2% W/EPINEPHRINE 20ML VIAL **PRES FREE As Ordered ONE (21:57)
[2023-06-25] MEDS ORDERED: LIDOCAINE 2% INJ 100 MG/5 ML SYRINGE As Ordered ONE (21:58)
[2023-06-25] MEDS ORDERED: SODIUM BICARBONATE 8.4% INJ 50ML SYRINGE As Ordered ONE (22:02)
[2023-06-25] MEDS ORDERED: ceFAZolin 2 GM/D5W 50 ML IV BAG As Ordered ONE (22:03)
[2023-06-25] MEDS ORDERED: ceFAZolin 1GM VIAL As Ordered ONE ×2 (22:04→22:14)
[2023-06-25] MEDS ORDERED: OXYTOCIN 30UNITS IN 0.9% NaCl 500ML IV BAG As Ordered ONE ×2 (22:07→23:18)
[2023-06-25] MEDS ORDERED: MORPHINE PRES-FREE INJ 10 MG/10 ML VIAL As Ordered ONE (22:10)
[2023-06-25] MEDS ORDERED: KETOROLAC 60MG 2ML VIAL As Ordered ONE (22:10)
[2023-06-25] MEDS ORDERED: ONDANSETRON 4MG 2ML VIAL As Ordered ONE (22:10)
[2023-06-25] MEDS ORDERED: AZITHROMYCIN INJ 500 MG, VIAL MATE ADAPTER 1 EACH in NS 250 ML IV ONE (22:15)
[2023-06-25] MEDS ORDERED: ceFAZolin SOD 3 GM in IV 1 EA IV ONE (22:20)
[2023-06-25] MEDS ORDERED: ceFAZolin SOD 2 GM in IV 1 EA IV ONE (22:25)
[2023-06-25] MEDS ORDERED: ceFAZolin SOD 1 GM in D5W MINI-BAG PLUS 50 ML IV ONE (22:25)
[2023-06-25] MEDS ORDERED: fentaNYL 100 MCG/2 ML INJECTION IV PRN (22:30)
[2023-06-25] MEDS: SLF 3 ML SYR IV SCH (22:30)
[2023-06-25] MEDS ORDERED: **NOTE PATIENT COMMENT** MISC XX SCH (22:30)
[2023-06-25] MEDS ORDERED: METOCLOPRAMIDE INJ 10MG/2ML VIAL IV PRN (22:30)
[2023-06-25 22:33] LABS: CORD GAS ABE A -6.3; CORD GAS ABE V -5.1; CORD GAS HCO3 A 23.2 MMOL/L; CORD GAS HCO3 V 20.6 MMOL/L; CORD GAS O2 SAT A 54.4 %; CORD GAS O2 SAT V 93.3 %; CORD GAS PCO2 A 61.3 mmHg; CORD GAS PCO2 V 40.8 mmHg; CORD GAS PH A 7.195 UNITS; CORD GAS PH V 7.322 UNITS; CORD GAS PO2 A 25.8 mmHg; CORD GAS PO2 V 70.2 mmHg; CORD GAS SBC A 18.3 MMOL/L; CORD GAS SBC V 20.3 MMOL/L; CORD GAS TCO2 V 21.9 MMOL/L
[2023-06-25] MEDS ORDERED: ANUSOL HC CREAM 30GM TOP PRN (23:10)
[2023-06-25] MEDS ORDERED: ACETAMINOPHEN 500 MG TAB PO PRN (23:10)
[2023-06-25] MEDS ORDERED: PERCOCET 5MG/325MG TAB PO PRN (23:10)
[2023-06-25] MEDS ORDERED: MORPHINE 4 MG/ML 1ML VIAL IV PRN (23:10)
[2023-06-25] MEDS ORDERED: RHOGAM 300MCG (1500IU) INJ IM SCH (23:10)
[2023-06-26] VITALS (9 sets, daily range): BP systolic 114–147; BP diastolic 56–71; TEMP 97.5; O2SAT 97–100
[2023-06-26 00:12] LABS: HEMATOCRIT 31.4 % (36.0-47.0); HEMOGLOBIN 10.7 g/dl (12.0-15.5); MEAN CORPUSCULAR HEMOGLOBIN 30.6 pg (27.0-33.0); MEAN CORPUSCULAR HGB CONC 34.1 g/dl (32.0-36.5); MEAN CORPUSCULAR VOLUME 89.7 fl (80.0-96.0); PLATELET COUNT, AUTOMATED 141 10^3/uL (150-450); WHITE BLOOD COUNT 9.9 10^3/uL (4.0-10.0)
[2023-06-26 00:17] LABS: CREATININE FOR GFR 0.59 MG/DL (0.55-1.30); GLOMERULAR FILTRATION RATE > 60.0 (>60)
[2023-06-26] MEDS: LR 1,000 ML IV SCH ×7 (02:04→23:32)
[2023-06-26] MEDS: PERCOCET 5MG/325MG TAB PO PRN ×3 (02:04→20:25)
[2023-06-26] MEDS: KETOROLAC 30 MG/ML 1ML VIAL IV SCH ×3 (06:24→16:29)
[2023-06-26] MEDS: LEVOTHYROXINE 150MCG TABLET (0.15MG) PO SCH (06:25)
[2023-06-26 08:12] LABS: HEMATOCRIT 31.5 % (36.0-47.0); HEMOGLOBIN 10.3 g/dl (12.0-15.5); MEAN CORPUSCULAR HEMOGLOBIN 29.5 pg (27.0-33.0); MEAN CORPUSCULAR HGB CONC 32.7 g/dl (32.0-36.5); MEAN CORPUSCULAR VOLUME 90.3 fl (80.0-96.0); PLATELET COUNT, AUTOMATED 131 10^3/uL (150-450); RED BLOOD COUNT 3.49 10^6/uL (4.00-5.40); WHITE BLOOD COUNT 8.5 10^3/uL (4.0-10.0)
[2023-06-26] MEDS: metFORMIN (GLUCOPHAGE) 500MG TAB PO SCH ×2 (10:57→17:36)
[2023-06-26] MEDS: ENOXAPARIN 40MG/0.4ML SYRINGE (J1650 PER 10MG) SC SCH ×2 (10:57→22:08)
[2023-06-26] MEDS: PRENATAL VITAMINS CHEWABLE TABLET PO SCH (10:57)
[2023-06-26] MEDS: DOCUSATE SODIUM 100MG CAPSULE PO SCH ×2 (10:58→22:07)
[2023-06-26] MEDS: LABETALOL 100MG TAB PO SCH ×2 (10:58→22:08)
[2023-06-26] MEDS: SLF 3 ML SYR IV SCH ×2 (10:59→14:30)
[2023-06-26] MEDS ORDERED: LR 1,000 ML IV ONE (13:30)
[2023-06-26] MEDS ORDERED: LR 500 ML IV ONE (18:45)
[2023-06-26] MEDS: SIMETHICONE 80MG CHEW TAB PO PRN (20:25)
[2023-06-27] MEDS: IBUPROFEN 800 MG TAB PO SCH ×2 (00:04→08:51)
[2023-06-27] MEDS ORDERED: LR 300 ML IV ONE ×2 (01:15→01:20)
[2023-06-27 02:00] VITALS: BP 100/45; O2SAT 97
[2023-06-27] MEDS: SIMETHICONE 80MG CHEW TAB PO PRN (03:18)
[2023-06-27] MEDS: PERCOCET 5MG/325MG TAB PO PRN ×2 (03:19→10:27)
[2023-06-27] MEDS: LEVOTHYROXINE 150MCG TABLET (0.15MG) PO SCH (05:39)
[2023-06-27 06:00] VITALS: BP 136/62; O2SAT 99
[2023-06-27] MEDS: LR 1,000 ML IV SCH (06:30)
[2023-06-27] MEDS: PRENATAL VITAMINS CHEWABLE TABLET PO SCH (08:50)
[2023-06-27] MEDS: metFORMIN (GLUCOPHAGE) 500MG TAB PO SCH (08:51)
[2023-06-27] MEDS: DOCUSATE SODIUM 100MG CAPSULE PO SCH (08:51)
[2023-06-27] MEDS: ENOXAPARIN 40MG/0.4ML SYRINGE (J1650 PER 10MG) SC SCH (08:51)
[2023-06-27 08:53] VITALS: BP 128/83
[2023-06-27] MEDS: LABETALOL 100MG TAB PO SCH (08:53)
[2023-06-27] MEDS ORDERED: MEASLES,MUMPS,RUBELLA VACCINE INJ (MMR-II) SC.IMMUN ONE (09:00)
[2023-06-27] MEDS ORDERED: OXYC1TAB23 PO (12:43)
[2023-06-27] MEDS ORDERED: IBUP80TA PO (12:43)
[2023-06-27] MEDS ORDERED: COLA100C5 PO (12:44)
== END 2023-06-27 17:10 | disposition home or self-care (01) | DRG 540 ==
LOC: M LDI 21:37 → M OBS 06-26 00:59
PROVIDERS: ADMIT Advanced Practice Midwife; ATTEND Obstetrics & Gynecology
PROC: 3E0P7GC Introduction of Other Therapeutic Substance into Female Reproductive, Via Natural or Artificial Opening (ICD-10-PCS; 2023-06-24)
PROC: 10D00Z1 Extraction of Products of Conception, Low, Open Approach (ICD-10-PCS; principal; 2023-06-25 22:00)
DX: O24.12 Pre-existing type 2 diabetes mellitus, in childbirth (principal); O10.02 Pre-existing essential hypertension complicating childbirth; O99.214 Obesity complicating childbirth; E66.01 Morbid (severe) obesity due to excess calories; O69.0XX0 Labor and delivery complicated by prolapse of cord, not applicable or unspecified; Z3A.37 37 weeks gestation of pregnancy; O99.284 Endocrine, nutritional and metabolic diseases complicating childbirth; E03.9 Hypothyroidism, unspecified; Z37.0 Single live birth; Z79.84 Long term (current) use of oral hypoglycemic drugs; Z79.899 Other long term (current) drug therapy; Z79.890 Hormone replacement therapy; Z88.0 Allergy status to penicillin

== ENCOUNTER → 2024-01-08 | Outpatient (REF) | payer OTHER, MEDICAID ==
[~2024-01-08] MED LIST changes: +COLA100C5 PO; +LABE200T5 PO; +METF-839 PO; +OXYC1TAB23 PO; +PRENTAB9 PO
[2024-01-08 18:31] LABS: CREATININE, URINE 210.7 MG/DL; MAU/CREAT RATIO 3.7 MCG/MG (0.0-30.0)
[2024-01-08 19:09] LABS: BASO # 0.1 10^3/uL (0.0-0.2); BASO % 1.5 % (0.0-1.0); EOS # 0.3 10^3/uL (0.0-0.5); EOS % 3.6 % (0.0-3.0); HEMATOCRIT 38.9 % (36.0-47.0); HEMOGLOBIN 12.6 g/dl (12.0-15.5); LYMPH # 2.1 10^3/uL (1.5-5.0); LYMPH % 27.5 % (24.0-44.0); MEAN CORPUSCULAR HEMOGLOBIN 27.8 pg (27.0-33.0); MEAN CORPUSCULAR HGB CONC 32.4 g/dl (32.0-36.5); MEAN CORPUSCULAR VOLUME 85.7 fl (80.0-96.0); MONO # 0.4 10^3/uL (0.0-0.8); MONO % 5.2 % (2.0-8.0); NEUTROPHILS # 4.6 10^3/uL (1.5-8.5); NEUTROPHILS % 61.8 % (36.0-66.0); PLATELET COUNT, AUTOMATED 218 10^3/uL (150-450); RED BLOOD COUNT 4.54 10^6/uL (4.00-5.40); WHITE BLOOD COUNT 7.5 10^3/uL (4.0-10.0)
[2024-01-08 19:23] LABS: HEMOGLOBIN A1c 5.2 % (4.0-6.0)
[2024-01-08 19:24] LABS: ALBUMIN 4.1 G/DL (3.2-5.2); ALKALINE PHOSPHATASE 101 U/L (46-116); ALT/SGPT 35 U/L (7.0-40); AST/SGOT 17 U/L (<34); BILIRUBIN,TOTAL 0.5 MG/DL (0.3-1.2); BLOOD UREA NITROGEN 14 MG/DL (9-23); CALCIUM LEVEL 9.1 MG/DL (8.5-10.1); CARBON DIOXIDE LEVEL 27 MMOL/L (20-31); CHLORIDE LEVEL 106 MMOL/L (98-107); CHOLESTEROL LEVEL 221 MG/DL (<200); CREATININE FOR GFR 0.67 MG/DL (0.55-1.30); GLOMERULAR FILTRATION RATE > 60.0 (>60); GLUCOSE, FASTING 84 MG/DL (60-100); HDL CHOLESTEROL 44.2 MG/DL (>40); NON-HDL-C 176.8 MG/DL; POTASSIUM SERUM 4.1 MMOL/L (3.5-5.1); SODIUM LEVEL 141 MMOL/L (136-145); TRIGLYCERIDES LEVEL 289 MG/DL (<150)
[2024-01-08 19:26] LABS: THYROID STIMULATING HORMONE 1.732 uIU/ML (0.55-4.78)
== END ==
LOC: M LAB REF 16:32
PROVIDERS: ATTEND Family Medicine Addiction Medicine
DX: E11.9 Type 2 diabetes mellitus without complications (principal); E03.9 Hypothyroidism, unspecified; D64.9 Anemia, unspecified

== ENCOUNTER → 2024-06-24 | Outpatient (REF) | payer OTHER ==
[2024-06-24 17:25] LABS: HEMOGLOBIN A1c 5.5 % (4.0-6.0)
== END ==
LOC: M LAB REF 16:22
PROVIDERS: ATTEND Pediatrics
DX: E03.9 Hypothyroidism, unspecified (principal); E11.9 Type 2 diabetes mellitus without complications

== ENCOUNTER → 2024-06-26 | Outpatient (CLI) | payer OTHER | LOC: M RAD 14:29 | PROVIDERS: ATTEND Physician Assistant | DX: M65.222 Calcific tendinitis, left upper arm (principal) ==

== ENCOUNTER → 2025-04-01 | Outpatient (CLI) | payer OTHER ==
[~2025-04-01] MED LIST changes: -IBUP-1022 PO; +IBUP600T42 PO
[2025-04-01 12:58] LABS: PLATELET COUNT, AUTOMATED 220 10^3/uL (150-450)
[2025-04-01 13:22] LABS: CREATININE, URINE 152.6 MG/DL; MALB URINE SIEMENS 33.0 MG/L; MAU/CREAT RATIO 21.6 MCG/MG (0.0-30.0)
[2025-04-01 13:23] LABS: ALT/SGPT 56 U/L (7.0-40); AST/SGOT 33 U/L (<34); CALCIUM LEVEL 9.7 MG/DL (8.5-10.1); CARBON DIOXIDE LEVEL 23 MMOL/L (20-31); CHLORIDE LEVEL 106 MMOL/L (98-107); CHOLESTEROL LEVEL 211 MG/DL (<200); CHOLESTEROL RISK RATIO 4.65 (<5); CREATININE FOR GFR 0.58 MG/DL (0.55-1.30); GLOMERULAR FILTRATION RATE > 90.0 (>60); LDL CHOLESTEROL 112.1 MG/DL (<100); NON-HDL-C 165.7 MG/DL; POTASSIUM SERUM 4.4 MMOL/L (3.5-5.1); SODIUM LEVEL 142 MMOL/L (136-145); TRIGLYCERIDES LEVEL 268 MG/DL (<150)
[2025-04-01 13:24] LABS: TOTAL 25(OH) VITAMIN D 54.4 NG/ML (20.0-100.0)
[2025-04-01 13:52] LABS: ESTIMATED AVERAGE GLUCOSE 137.0 MG/DL (60-110)
== END ==
LOC: M EKG 12:10
PROVIDERS: ATTEND Pediatrics
DX: E11.9 Type 2 diabetes mellitus without complications (principal); I10 Essential (primary) hypertension; E03.9 Hypothyroidism, unspecified; E55.9 Vitamin D deficiency, unspecified; E78.5 Hyperlipidemia, unspecified